=== PATIENT | female | born 1995 | race Caucasian/White ===

== ENCOUNTER 2021-03-22 12:04 | Emergency (ER) | payer OTHER ==
[~2021-03-22 12:04] MED LIST: BENTYL 20MG TAB20 MG PO; OMNICEF 300 MG300 MG PO; PREDNISONE20 MG PO; PROTONIX40 MG PO; PYRIDIUM200 MG PO; TORADOL 10 MG T10 MG PO; ZOFRAN ODT 4 MG4 MG SL; ZOFRAN4 MG PO
[2021-03-22 12:40] LABS: HEMOGLOBIN 13.8 gm/dl (12.3-15.3); RED BLOOD COUNT 4.54 M/UL (4.00-5.10); WHITE BLOOD COUNT 8.6 K/UL (4.5-11.0)
[2021-03-22 13:03] LABS: BUN/CREATININE RATIO 21 (0-10)
[2021-03-22] MEDS ORDERED: FLORASTOR250 MG PO (17:46)
[2021-03-22] MEDS ORDERED: BENTYL 20MG TAB20 MG PO (17:46)
[2021-03-22] MEDS ORDERED: ZOFRAN ODT 4 MG4 MG SL (17:46)
== END 2021-03-22 18:23 | disposition home or self-care (01) ==
LOC: ER1 12:04
PROVIDERS: Family Medicine
DX: I88.0 Nonspecific mesenteric lymphadenitis (principal); F17.290 Nicotine dependence, other tobacco product, uncomplicated
CPT/HCPCS: 80053; 81001; 83690; 84703; 85025; 96374; 96375; 99284; J2270; J2405; J7030; Q9967